=== PATIENT | male | born 1980 | race Caucasian/White ===

== ENCOUNTER 2019-02-09 09:59 | Emergency (ER) | payer BC ==
[~2019-02-09] VITALS: Ht 190.5 cm; Wt 131.0 kg
[2019-02-09 10:04] VITALS: Ht 190.5 cm; Wt 131.0 kg
[2019-02-09] MEDS ORDERED: HC30CR25 TOP (10:36)
[2019-02-09] MEDS ORDERED: DOCU-144 PO (10:36)
--- NOTE | 2019-02-09 10:38 | ERD ---
ER Documentation Chief Complaint Chief Complaint rectal bleed - bright red when pt wipe his anus after defecating HPI 38-year-old male presents with some rectal bleeding since this morning. Started after a bowel movement but persists. He did have some pain yesterday but no pain today. Denies fevers, vomiting, abdominal pain, additional symptoms. Denies any previous history of same. Denies family history of colon cancer. Blood is bright red. ROS All systems reviewed and are negative except as per history of present illness. Medications Home Meds Active Scripts Docusate Sodium* (Colace*) 100 Mg Capsule, 100 MG PO BID, #30 CAP Prov:JENNIFER SMITH MD 02/09/19 Hydrocortisone* Topical (Hydrocortisone* Topical) 2.5%-28.3 Gm Cream..g., 1 FERNANDO LIC TOP BID for 7 Days, #1 TUB Prov:JENNIFER SMITH MD 02/09/19 FmHx Family History: No diabetes, No coronary disease, No other Physical Exam Vitals Vital Signs Date Temp Pulse Resp B/P (MAP) Pulse Ox O2 O2 Flow FiO2 Time Delivery Rate 02/09/19 98.8 99 19 143/87 98 Room Air 10:50 (105) 02/09/19 98.8 124 24 161/97 98 10:04 (118) Physical Exam Const: No acute distress Head: Atraumatic Eyes: Normal Conjunctiva ENT: Normal External Ears, Nose and Mouth. Neck: Full range of motion. No meningismus. Resp: Clear to auscultation bilaterally Cardio: Regular rate and rhythm, no murmurs Abd: Soft, non tender, non distended. Normal bowel sounds. Rectal exam shows visible thrombosed external hemorrhoid with active bleeding. No surrounding erythema, fluctuance. No appreciable masses. Skin: No petechiae or rashes Back: No midline or flank tenderness Ext: No cyanosis, or edema Neur: Awake and alert Psych: Normal Mood and Affect Procedures/MDM Patient presents with a bleeding thrombosed external hemorrhoid. Procedure note-rectal area was prepped with Betadine. 1 cc lidocaine was used for local nutrition. Using blunt dissection a clot was removed. Patient tolerated procedure well there was no bleeding after procedure. Patient presents with signs and symptoms of what appears to be at bleeding thrombosed external hemorrhoid. Currently there is no signs or symptoms of masses, abscess, cellulitis, additional complications. Will treat with hydrocortisone, Colace, commendations for primary care follow-up for persistent or recurrent symptoms, return precautions for fevers, redness, new worsening symptoms or significant bleeding. The patient was stable with no new complaints during the ER course. Clinically, there is no current evidence to suggest meningitis, sepsis, acute abdomen, pneumonia, stroke, acute coronary syndrome, pulmonary embolism, aortic dissection or any other emergent condition appearing to require further evaluation or hospitalization. Patient counseled regarding my diagnostic impression and care plan. Prior to discharge all questions answered. Pt agrees with treatment plan and understands strict return precautions. Pt is instructed to follow up with primary care provider within 24- 48 hours. Precautionary instructions provided including instructions to return to the ER if not improving or for any worsening or changing symptoms or concerns. Departure Diagnosis: Primary Impression: Thrombosed external hemorrhoids Condition: Stable Patient Instructions: Thrombosed Hemorrhoids Additional Instructions: See primary doctor for recurrent or persistent symptoms. Bleeding should resolve with treatment of external hemorrhoid. Recheck otherwise for fevers, worsening pain, redness, swelling, new symptoms. JENNIFER SMITH MD Feb 09, 2019 10:38
[2019-02-09 10:50] VITALS: BP 143/87; PULSE 99; RESP 19
== END 2019-02-09 10:53 | disposition home or self-care (01) ==
LOC: FTE 09:59
DX: K64.5 Perianal venous thrombosis (principal)